=== PATIENT | male | born 1995 | race Caucasian/White ===

== ENCOUNTER 2017-08-12 10:47 | Emergency (ER) | payer MEDICAID | END 2017-08-12 14:33 | disposition home or self-care (01) | LOC: D.ER 10:47 | DX: S39.012A Strain of muscle, fascia and tendon of lower back, initial encounter (principal); X58.XXXA Exposure to other specified factors, initial encounter; Y93.89 Activity, other specified; Y92.019 Unspecified place in single-family (private) house as the place of occurrence of the external cause; M54.32 Sciatica, left side ==

== ENCOUNTER 2019-02-20 23:19 | Emergency (ER) | payer MEDICAID ==
[~2019-02-20] VITALS: Ht 182.9 cm; Wt 79.5 kg
[2019-02-20 23:34] VITALS: Ht 182.9 cm; Wt 79.5 kg
[2019-02-20] MEDS ORDERED: UNK ANTIDEPRESSANT (23:36)
[2019-02-21] MEDS ORDERED: DOXYCYCLINE HY100 M2 PO (00:08)
[2019-02-21] MEDS ORDERED: FLAGYL500 MG PO (00:08)
[2019-02-21] MEDS ORDERED: HYDROCODONE-A1 UDTA2 PO (00:09)
[2019-02-21 00:15] LABS: APPEARANCE CLOUDY (CLEAR); BILIRUBIN NEGATIVE (NEGATIVE); COLOR YELLOW (YELLOW); GLUCOSE NEGATIVE (NEGATIVE); KETONE NEGATIVE (NEGATIVE); NITRITE NEGATIVE (NEGATIVE); PROTEIN 1+ mg/dL (NEGATIVE); SPECIFIC GRAVITY 1.015 (1.005-1.020); UROBILINOGEN NORMAL (NORMAL)
[2019-02-21 00:16] LABS: BACTERIA FEW /hpf (NEGATIVE); EPITHELIAL CELLS 0-5 /hpf (0-5); MUCUS <1+ /lpf (NONE SEEN); RED CELLS - URINE 0-5 /hpf (0-5)
[2019-02-21 00:40] VITALS: BP 127/73
[2019-02-24 16:08] LABS: CHLAMYDIA TRACHOMATIS, NAA Negative (Negative)
== END 2019-02-21 00:41 | disposition home or self-care (01) ==
LOC: D.ER 23:19
PROVIDERS: Emergency Medicine
DX: N34.2 Other urethritis (principal)